=== PATIENT | male | born 1950 | race Caucasian/White ===

== ENCOUNTER 2017-11-16 14:47 | Inpatient (IN) | payer OTHER, MEDICARE ==
[~2017-11-16] VITALS: Ht 185.4 cm; Wt 125.8 kg
[2017-11-16 15:00] VITALS: BP 121/53
[2017-11-16] MEDS ORDERED: SUCCINYLCHOLINE CHLORIDE 20 MG/ML 10ML VIAL IV ONE (15:00)
[2017-11-16] MEDS ORDERED: ETOMIDATE (2MG/ML) 20ML VIAL IV ONE (15:00)
[2017-11-16] MEDS ORDERED: SODIUM CHLORIDE 0.9% 1,000 ML IV ONE (15:06)
[2017-11-16] MEDS ORDERED: MIDAZOLAM DRIP 50 mg/50mL 50 ML IV ONE (15:10)
[2017-11-16] MEDS ORDERED: LEVOFLOXACIN 500 MG/100 ML PREMIX BAG IV ONE (15:15)
[2017-11-16] MEDS: MIDAZOLAM DRIP 50 mg/50mL 50 ML IV SCH (15:15)
[2017-11-16] MEDS ORDERED: NOREPINEPHRINE 8 MG/250ML KIT 250 ML IV ONE (15:17)
[2017-11-16] MEDS: NOREPINEPHRINE 8 MG/250ML KIT 250 ML IV SCH (15:30)
[2017-11-16 16:10] LABS: Basophils # (auto) 0 uL; Eosinophils # (auto) 0 uL; Hematocrit 43.8 % (41.0-53.0); Hemoglobin 14.5 g/dL (13.5-17.5); Lymphocytes # (auto) 0.3 uL; Mean Corpuscular Hemoglobin 30.4 pg (28.0-32.0); Mean Corpuscular Hgb Conc. 33.1 g/dL (32.0-36.0); Monocytes # (auto) 0.8 uL; Monocytes % (auto) 8.5 % (0.0-12.0); Neutrophils # (auto) 8.6 uL; Neutrophils % (auto) 88.5 % (37.0-80.0); Nucleated Red Blood Cells % 0.1 %; Platelet Count (auto) 144 10^3/uL (140-450); Red Blood Cells 4.76 10^6/uL (4.5-5.90); Red Cell Distribution Width 14.4 % (11.8-14.3); White Blood Cell 9.7 10^3/uL (4.4-10.8)
[2017-11-16 16:18] LABS: Lactic Acid w/Reflex 2.1 mmol/L (0.4-2.0)
[2017-11-16 16:25] LABS: INR 0.95 (0.9-1.15); Partial Thromboplastin Time 27.8 sec (23.78-33.04); Prothrombin Time 10.2 sec (9.27-12.13)
[2017-11-16 16:39] LABS: Alanine Aminotransferase 21 U/L (16-61); Albumin 2.9 g/dL (3.4-5.0); Alkaline Phosphatase 72 U/L (45-117); Anion Gap 9 (5-15); Aspartate Aminotransferase 41 U/L (15-37); BUN/Creatinine Ratio 14.2; Bilirubin, Total 0.8 mg/dL (0.2-1.0); Blood Alcohol < 3.0 mg/dL (0-5); Blood Urea Nitrogen 71 mg/dL (7-18); Calcium 7.1 mg/dL (8.5-10.1); Carbon Dioxide 19 mmol/L (21-32); Chloride 108 mmol/L (98-107); GFR African American 15 mL/min; GFR Non-African American 12 mL/min; Glucose 138 mg/dL (74-106); Sodium 136 mmol/L (136-145); Total Protein 6.9 g/dL (6.4-8.2)
[2017-11-16 17:10] LABS: Urine Bacteria NONE SEEN /hpf (None Seen); Urine Blood 1+ /uL (Negative); Urine Mucus FEW (None Seen); Urine Specific Gravity 1.026 (1.001-1.035); Urine WBC 2 /hpf (0 - 3)
[2017-11-16] MEDS ORDERED: SODIUM BICARBONATE 8.4 % INJ 50ML VIAL IV ONE ×2 (17:15→18:15)
[2017-11-16] MEDS ORDERED: SODIUM CHLORIDE 0.9% 2,000 ML IV ONE (17:15)
[2017-11-16] MEDS ORDERED: CALCIUM GLUC 4.65meq/50ml D5AE 50 ML IV ONE (17:15)
[2017-11-16 17:29] LABS: Alcohol, Urine < 3.0 mg/dL (0-5); Amphetamine Screen, Urine NEGATIVE (NEGATIVE); Barbiturate Scree,Urine NEGATIVE (NEGATIVE); Benzodiazephine Screen, Urine NEGATIVE (NEGATIVE); Cannabinoid Screen, Urine NEGATIVE (NEGATIVE); Cocaine Screen, Urine NEGATIVE (NEGATIVE); Opiate Scree,Urine POSITIVE (NEGATIVE); Phencyclidine Screen, Urine NEGATIVE (NEGATIVE)
[2017-11-16 18:35] VITALS: BP 95/52
[2017-11-16 20:25] VITALS: BP 113/73
[2017-11-16] MEDS ORDERED: LORazepam 2MG/ML-1ML VIAL ONE (20:33)
[2017-11-16 21:35] VITALS: BP 135/76
[2017-11-16] MEDS ORDERED: LORazepam 2MG/ML-1ML VIAL IV PRN (23:00)
[2017-11-16] MEDS ORDERED: ONDANSETRON HCL 4 MG/2 ML VIAL IV PRN (23:00)
[2017-11-16 23:30] VITALS: BP 131/74
[2017-11-16] MEDS: ACETAMINOPHEN 650 mg PER 20 mL UD PO PRN (23:34)
[2017-11-16 23:43] VITALS: BP 131/74
[2017-11-17] VITALS (80 sets, daily range): BP systolic 83–143; BP diastolic 49–88
[2017-11-17] MEDS: ALBUTEROL SULF 2.5 MG/0.5ML(0.5%) NEB SOLN NEB SCH ×4 (00:40→18:33)
[2017-11-17] MEDS: IPRATROPIUM BROM 0.5 MG/2.5ML INH SOL NEB SCH ×4 (00:40→18:33)
[2017-11-17] MEDS ORDERED: DEXTROSE (50%) 50ML SYRG IV PRN (00:45)
[2017-11-17 01:05] LABS: Potassium 3.9 mmol/L (3.5-5.1)
[2017-11-17] MEDS ORDERED: SODIUM BICARBONATE 8.4 % INJ 50ML VIAL IV ONE (05:00)
[2017-11-17] MEDS: NOREPINEPHRINE 8 MG/250ML KIT 250 ML IV SCH ×2 (06:18→21:22)
[2017-11-17] MEDS: ACCU-CHEK COMFORT CURVE STRIP VI SCH ×4 (06:18→23:55)
[2017-11-17] MEDS: InsuLIN REG 1unit/0.01ml Soln (100units/ml) SC SCH ×4 (06:31→23:55)
[2017-11-17] MEDS: MIDAZOLAM DRIP 50 mg/50mL 50 ML IV SCH ×4 (07:03→20:50)
[2017-11-17] MEDS ORDERED: cefTRIAXone 1GM/10ml IVPUSH 10 ML IV SCH (09:00)
[2017-11-17 09:02] LABS: Basophils # (auto) 0 uL; Basophils % (auto) 0.1 % (0.0-2.0); Eosinophils # (auto) 0 uL; Hematocrit 44.5 % (41.0-53.0); Hemoglobin 14.4 g/dL (13.5-17.5); Lymphocytes # (auto) 0.4 uL; Lymphocytes % (auto) 7.2 % (10.0-50.0); Mean Corpuscular Hemoglobin 29.2 pg (28.0-32.0); Mean Corpuscular Hgb Conc. 32.3 g/dL (32.0-36.0); Mean Corpuscular Volume 90.3 fL (80.0-100.0); Monocytes # (auto) 0.7 uL; Monocytes % (auto) 11.3 % (0.0-12.0); Neutrophils # (auto) 4.8 uL; Neutrophils % (auto) 81.4 % (37.0-80.0); Nucleated Red Blood Cells % 0.1 %; Platelet Count (auto) 125 10^3/uL (140-450); Red Blood Cells 4.92 10^6/uL (4.5-5.90); Red Cell Distribution Width 14.3 % (11.8-14.3); White Blood Cell 5.8 10^3/uL (4.4-10.8)
[2017-11-17] MEDS: PANTOPRAZOLE 40 MG/10 ML VIAL IV SCH (09:23)
[2017-11-17 09:27] LABS: Calcium 6.9 mg/dL (8.5-10.1)
[2017-11-17] MEDS ORDERED: ENOXAPARIN SOD 30 MG/0.3 ML SYRINGE SC SCH (10:00)
[2017-11-17] MEDS ORDERED: ENOXAPARIN SOD 120 MG/0.8 ML SYRINGE SC SCH (10:00)
[2017-11-17] MEDS ORDERED: ESOM40CA39 PO (11:16)
[2017-11-17] MEDS ORDERED: CLON0.2D6 PO (11:16)
[2017-11-17] MEDS ORDERED: VITATAB PO (11:16)
[2017-11-17] MEDS ORDERED: FERR-7 PO (11:16)
[2017-11-17] MEDS ORDERED: LOSA25TA40 PO (11:16)
[2017-11-17] MEDS ORDERED: AMLO5TAB13 PO ×2 (11:16)
[2017-11-17] MEDS ORDERED: CALCCHW17 PO (11:16)
[2017-11-17] MEDS ORDERED: ERGO1CAP23 PO (11:16)
[2017-11-17] MEDS ORDERED: LOSA-46 PO (11:16)
[2017-11-17] MEDS ORDERED: CYAN50008 PO (11:16)
[2017-11-17] MEDS ORDERED: MULT-228 PO (11:16)
[2017-11-17] MEDS: ACETAMINOPHEN 650 mg PER 20 mL UD PO PRN (11:43)
[2017-11-17] MEDS ORDERED: SODIUM BICARBONATE 50ML VIAL 50 ML in SOD CHL 0.45% 1,000 ML IV SCH (12:15)
[2017-11-17] MEDS ORDERED: PIPERACILLIN-TAZOB 3.375GM 100 ML IV ONE (12:15)
[2017-11-17] MEDS ORDERED: ASPirin-EC 81 mg tab PO ONE (12:15)
[2017-11-17] MEDS: SODIUM BICARBONATE 50ML VIAL 100 ML in SOD CHL 0.45% 1,000 ML IV SCH ×2 (12:30→23:35)
[2017-11-17] MEDS ORDERED: LIDOCAINE 1% (LOCAL ANESTH.) PF 5ml SDV ID ONE (15:30)
[2017-11-17] MEDS ORDERED: PROPOFOL 100 ML IV ONE (16:42)
[2017-11-17] MEDS ORDERED: MORPHINE SULF INJ 2 MG/ML SYRINGE 1ML IV PRN (16:45)
[2017-11-17] MEDS: PROPOFOL 100 ML IV SCH ×2 (17:05→22:38)
[2017-11-17] MEDS: PIPERACILLIN-TAZOB 3.375GM 100 ML IV SCH ×2 (17:44→23:35)
[2017-11-17] MEDS ORDERED: PIPERACILLIN-TAZOB 2.25GM 50 ML IV SCH (18:00)
[2017-11-17] MEDS ORDERED: PIPERACILLIN-TAZOB 3.375GM 100 ML IV SCH (18:00)
[2017-11-17] MEDS: SODIUM CHLOR 0.9% PF (SALINE LOCK) 10ML VIAL/SYR IV SCH (22:38)
[2017-11-17] MEDS ORDERED: GABA300C10 PO (23:23)
[2017-11-18] VITALS (104 sets, daily range): BP systolic 69–148; BP diastolic 39–97
[2017-11-18] MEDS ORDERED: GABA300C10 PO (00:27)
[2017-11-18] MEDS: IPRATROPIUM BROM 0.5 MG/2.5ML INH SOL NEB SCH ×4 (00:28→18:36)
[2017-11-18] MEDS: ALBUTEROL SULF 2.5 MG/0.5ML(0.5%) NEB SOLN NEB SCH ×4 (00:28→18:35)
[2017-11-18] MEDS: MIDAZOLAM DRIP 50 mg/50mL 50 ML IV SCH ×5 (01:35→20:48)
[2017-11-18] MEDS: PROPOFOL 100 ML IV SCH ×4 (01:35→17:43)
[2017-11-18 03:58] LABS: Basophils # (auto) 0 uL; Basophils % (auto) 0.4 % (0.0-2.0); Eosinophils # (auto) 0.1 uL; Eosinophils % (auto) 1.5 % (0.0-7.0); Lymphocytes # (auto) 0.4 uL; Lymphocytes % (auto) 11.2 % (10.0-50.0); Mean Corpuscular Hemoglobin 29.3 pg (28.0-32.0); Mean Corpuscular Hgb Conc. 33.2 g/dL (32.0-36.0); Mean Corpuscular Volume 88.2 fL (80.0-100.0); Monocytes # (auto) 0.3 uL; Monocytes % (auto) 9.4 % (0.0-12.0); Neutrophils # (auto) 2.8 uL; Neutrophils % (auto) 77.5 % (37.0-80.0); Platelet Count (auto) 98 10^3/uL (140-450); Red Blood Cells 4.42 10^6/uL (4.5-5.90); White Blood Cell 3.6 10^3/uL (4.4-10.8)
[2017-11-18 04:32] LABS: Albumin 2.2 g/dL (3.4-5.0); BUN/Creatinine Ratio 29.4; Bilirubin, Direct 0.2 mg/dL (0-0.2); Bilirubin, Total 0.5 mg/dL (0.2-1.0); Calcium 6.9 mg/dL (8.5-10.1); Magnesium 2.6 mg/dL (1.6-2.6); Phosphorus 1.2 mg/dL (2.5-4.90); Potassium 3.6 mmol/L (3.5-5.1); Total Protein 5.6 g/dL (6.4-8.2); Uric Acid 3.2 mg/dL (3.5-7.2)
[2017-11-18 05:07] LABS: Urine Bacteria NONE SEEN /hpf (None Seen); Urine Blood 1+ /uL (Negative); Urine Specific Gravity 1.025 (1.001-1.035); Urine WBC 2 /hpf (0 - 3)
[2017-11-18 05:20] LABS: Protein, Urine 86.2 mg/dL (0.0-11.9)
[2017-11-18] MEDS: InsuLIN REG 1unit/0.01ml Soln (100units/ml) SC SCH ×4 (05:47→23:48)
[2017-11-18] MEDS: ACCU-CHEK COMFORT CURVE STRIP VI SCH ×4 (05:47→23:48)
[2017-11-18] MEDS: PIPERACILLIN-TAZOB 3.375GM 100 ML IV SCH ×4 (05:47→23:48)
[2017-11-18] MEDS: ASPirin-EC 81 mg tab PO SCH ×2 (10:00→10:20)
[2017-11-18] MEDS: ENOXAPARIN SOD 120 MG/0.8 ML SYRINGE SC SCH ×2 (10:15→22:22)
[2017-11-18] MEDS: PANTOPRAZOLE 40 MG/10 ML VIAL IV SCH (10:15)
[2017-11-18] MEDS: SODIUM CHLORIDE 0.9% 1,000 ML IV SCH (10:16)
[2017-11-18] MEDS: SODIUM CHLOR 0.9% PF (SALINE LOCK) 10ML VIAL/SYR IV SCH ×2 (10:16→22:22)
[2017-11-18] MEDS ORDERED: metroNIDAZOLE 500MG/100ML 100 ML IV ONE (11:30)
[2017-11-18] MEDS ORDERED: CALCIUM GLUC 4.65meq/50ml D5AE 50 ML IV ONE (12:00)
[2017-11-18] MEDS ORDERED: POTASSIUM PHOSPHATE 44 MEQ in D5W 5% 250 ML IV ONE (12:00)
[2017-11-18] MEDS: VANCOMYCIN HCL 125MG/5ML ORAL SOL PO SCH ×3 (13:57→22:21)
[2017-11-18] MEDS ORDERED: GABAPENTIN 300 MG CAP PO SCH (14:00)
[2017-11-18] MEDS: GABAPENTIN 300 MG CAP PO SCH ×2 (15:00→22:21)
[2017-11-18] MEDS ORDERED: metroNIDAZOLE 500MG/100ML 100 ML IV SCH (20:00)
[2017-11-18] MEDS: FAMOTIDINE 20 MG TAB PO SCH (22:21)
[2017-11-19] VITALS (55 sets, daily range): BP systolic 87–152; BP diastolic 49–90
[2017-11-19] MEDS: ALBUTEROL SULF 2.5 MG/0.5ML(0.5%) NEB SOLN NEB SCH ×4 (00:32→18:46)
[2017-11-19] MEDS: IPRATROPIUM BROM 0.5 MG/2.5ML INH SOL NEB SCH ×4 (00:33→18:46)
[2017-11-19] MEDS: PROPOFOL 100 ML IV SCH ×3 (00:34→20:31)
[2017-11-19 04:06] LABS: Basophils # (auto) 0 uL; Basophils % (auto) 0.7 % (0.0-2.0); Eosinophils # (auto) 0 uL; Eosinophils % (auto) 1.3 % (0.0-7.0); Hematocrit 34.7 % (41.0-53.0); Hemoglobin 11.5 g/dL (13.5-17.5); Lymphocytes # (auto) 0.6 uL; Lymphocytes % (auto) 17.5 % (10.0-50.0); Mean Corpuscular Hemoglobin 29.4 pg (28.0-32.0); Mean Corpuscular Hgb Conc. 33.1 g/dL (32.0-36.0); Mean Corpuscular Volume 88.7 fL (80.0-100.0); Monocytes # (auto) 0.3 uL; Monocytes % (auto) 8.5 % (0.0-12.0); Neutrophils # (auto) 2.5 uL; Nucleated Red Blood Cells % 0.1 %; Platelet Count (auto) 100 10^3/uL (140-450); Red Blood Cells 3.91 10^6/uL (4.5-5.90); White Blood Cell 3.5 10^3/uL (4.4-10.8)
[2017-11-19 04:30] LABS: BUN/Creatinine Ratio 18.7; Calcium 7.2 mg/dL (8.5-10.1); Magnesium 2.4 mg/dL (1.6-2.6); Phosphorus 1.7 mg/dL (2.5-4.90); Potassium 3.2 mmol/L (3.5-5.1)
[2017-11-19] MEDS: InsuLIN REG 1unit/0.01ml Soln (100units/ml) SC SCH ×3 (06:00→19:00)
[2017-11-19] MEDS: ACCU-CHEK COMFORT CURVE STRIP VI SCH ×3 (06:00→19:00)
[2017-11-19] MEDS: PIPERACILLIN-TAZOB 3.375GM 100 ML IV SCH ×3 (06:20→21:09)
[2017-11-19] MEDS: GABAPENTIN 300 MG CAP PO SCH ×3 (06:20→22:04)
[2017-11-19] MEDS: VANCOMYCIN HCL 125MG/5ML ORAL SOL PO SCH (06:21)
[2017-11-19] MEDS: SODIUM CHLORIDE 0.9% 1,000 ML IV SCH ×2 (06:36→19:05)
[2017-11-19] MEDS ORDERED: POTASSIUM PHOSPHATE 22 MEQ in SODIUM CHL 0.9% 100 ML IV ONE (06:45)
[2017-11-19] MEDS: SODIUM CHLOR 0.9% PF (SALINE LOCK) 10ML VIAL/SYR IV SCH ×2 (07:46→22:12)
[2017-11-19] MEDS: ASPirin 81 mg TAB PO SCH (10:00)
[2017-11-19] MEDS: FAMOTIDINE 20 MG TAB PO SCH ×2 (10:00→22:04)
[2017-11-19] MEDS: ENOXAPARIN SOD 120 MG/0.8 ML SYRINGE SC SCH ×2 (10:58→22:05)
[2017-11-19] MEDS ORDERED: POTASSIUM EFFERVESENT TAB 25 MEQ GT ONE (12:00)
[2017-11-19] MEDS ORDERED: FUROSEMIDE 40 MG/4 ML VIAL IV ONE (12:00)
[2017-11-19] MEDS: NOREPINEPHRINE 8 MG/250ML KIT 250 ML IV SCH (14:16)
[2017-11-20] VITALS (99 sets, daily range): BP systolic 82–152; BP diastolic 43–90
[2017-11-20] MEDS: ALBUTEROL SULF 2.5 MG/0.5ML(0.5%) NEB SOLN NEB SCH ×4 (00:04→18:59)
[2017-11-20] MEDS: IPRATROPIUM BROM 0.5 MG/2.5ML INH SOL NEB SCH ×4 (00:04→18:59)
[2017-11-20] MEDS: PROPOFOL 100 ML IV SCH ×3 (00:34→12:25)
[2017-11-20] MEDS: PIPERACILLIN-TAZOB 3.375GM 100 ML IV SCH ×5 (00:34→23:36)
[2017-11-20] MEDS: ACCU-CHEK COMFORT CURVE STRIP VI SCH ×5 (00:34→23:59)
[2017-11-20] MEDS: InsuLIN REG 1unit/0.01ml Soln (100units/ml) SC SCH ×5 (00:34→23:59)
[2017-11-20 03:32] LABS: Hematocrit 35.1 % (41.0-53.0); Hemoglobin 11.3 g/dL (13.5-17.5); Mean Corpuscular Hemoglobin 28.8 pg (28.0-32.0); Mean Corpuscular Hgb Conc. 32.3 g/dL (32.0-36.0); Mean Corpuscular Volume 89.2 fL (80.0-100.0); Platelet Count (auto) 101 10^3/uL (140-450); Red Blood Cells 3.93 10^6/uL (4.5-5.90); White Blood Cell 4.6 10^3/uL (4.4-10.8)
[2017-11-20 03:39] LABS: Basophils % (manual) 0 (0.0-2.0); Blast Cells 0; Eosinophils % (manual) 0 (0-7); Myelocytes % 0; Promyelocytes % 0; Reactive Lymphocytes 0
[2017-11-20 03:49] LABS: BUN/Creatinine Ratio 15.4
[2017-11-20 03:58] LABS: Band Neutrophils % (manual) 5; Lymphocytes % (manual) 11 (10.0-50.0); Metamyelocytes % 5; Monocytes % (manual) 7 (0-12)
[2017-11-20] MEDS: SODIUM CHLORIDE 0.9% 1,000 ML IV SCH ×2 (04:48→12:00)
[2017-11-20] MEDS: GABAPENTIN 300 MG CAP PO SCH ×3 (05:31→22:01)
[2017-11-20] MEDS: POTASSIUM CHL 20MEQ/100ML 100 ML IV SCH ×2 (05:46→07:38)
[2017-11-20 06:01] LABS: Anion Gap 7 (5-15); BUN/Creatinine Ratio 13.1; Blood Urea Nitrogen 11 mg/dL (7-18); Carbon Dioxide 26 mmol/L (21-32); Chloride 112 mmol/L (98-107); GFR African American 118 mL/min; GFR Non-African American 97 mL/min; Glucose 107 mg/dL (74-106); Sodium 145 mmol/L (136-145)
[2017-11-20 06:02] LABS: Alanine Aminotransferase 24 U/L (16-61); Alkaline Phosphatase 47 U/L (45-117); Aspartate Aminotransferase 26 U/L (15-37); Bilirubin, Total 0.4 mg/dL (0.2-1.0); Calcium 6.9 mg/dL (8.5-10.1); Total Protein 5.2 g/dL (6.4-8.2)
[2017-11-20] MEDS: SODIUM CHLOR 0.9% PF (SALINE LOCK) 10ML VIAL/SYR IV SCH ×2 (10:00→22:00)
[2017-11-20] MEDS ORDERED: IOHEXOL 350 MG/ML 100ML IJ ONE (11:07)
[2017-11-20] MEDS ORDERED: FLORASTOR (S. BOULARDII) 250 MG CAP PO ONE (11:27)
[2017-11-20] MEDS ORDERED: PANTOPRAZOLE 40 MG/10 ML VIAL IV ONE (11:45)
[2017-11-20] MEDS: ENOXAPARIN SOD 120 MG/0.8 ML SYRINGE SC SCH ×2 (12:50→22:01)
[2017-11-20] MEDS: ASPirin 81 mg TAB PO SCH (12:54)
[2017-11-20] MEDS ORDERED: Jevity 1.2 Cal/Fiber 1 Liter GT SCH (19:00)
[2017-11-21] VITALS (61 sets, daily range): BP systolic 122–161; BP diastolic 54–99
[2017-11-21] MEDS: IPRATROPIUM BROM 0.5 MG/2.5ML INH SOL NEB SCH ×4 (00:31→19:27)
[2017-11-21] MEDS: ALBUTEROL SULF 2.5 MG/0.5ML(0.5%) NEB SOLN NEB SCH ×4 (00:31→19:27)
[2017-11-21] MEDS: PROPOFOL 100 ML IV SCH (03:42)
[2017-11-21 03:59] LABS: Hematocrit 35.6 % (41.0-53.0); Hemoglobin 11.8 g/dL (13.5-17.5); Mean Corpuscular Hemoglobin 29.5 pg (28.0-32.0); Mean Corpuscular Hgb Conc. 33.2 g/dL (32.0-36.0); Platelet Count (auto) 98 10^3/uL (140-450); White Blood Cell 6.1 10^3/uL (4.4-10.8)
[2017-11-21 04:16] LABS: BUN/Creatinine Ratio 11.4; Calcium 7.5 mg/dL (8.5-10.1); Magnesium 2.4 mg/dL (1.6-2.6); Potassium 3.2 mmol/L (3.5-5.1)
[2017-11-21 04:25] LABS: Basophils % (manual) 0 (0.0-2.0); Blast Cells 0; Eosinophils % (manual) 0 (0-7); Metamyelocytes % 0; Myelocytes % 0; Promyelocytes % 0; Reactive Lymphocytes 0
[2017-11-21 05:27] LABS: Band Neutrophils % (manual) 3; Lymphocytes % (manual) 1 (10.0-50.0); Monocytes % (manual) 2 (0-12)
[2017-11-21] MEDS: InsuLIN REG 1unit/0.01ml Soln (100units/ml) SC SCH ×3 (06:00→17:50)
[2017-11-21] MEDS: PIPERACILLIN-TAZOB 3.375GM 100 ML IV SCH (06:00)
[2017-11-21] MEDS: ACCU-CHEK COMFORT CURVE STRIP VI SCH ×4 (06:00→23:53)
[2017-11-21] MEDS: GABAPENTIN 300 MG CAP PO SCH ×3 (06:00→22:02)
[2017-11-21] MEDS ORDERED: POTASSIUM CHL 20MEQ/100ML 100 ML IV ONE (07:15)
[2017-11-21] MEDS: SODIUM CHLORIDE 0.9% 1,000 ML IV SCH ×2 (07:45→11:29)
[2017-11-21] MEDS: PANTOPRAZOLE 40 MG/10 ML VIAL IV SCH (09:29)
[2017-11-21] MEDS: ASPirin 81 mg TAB PO SCH (09:29)
[2017-11-21] MEDS: SODIUM CHLOR 0.9% PF (SALINE LOCK) 10ML VIAL/SYR IV SCH ×2 (09:29→22:02)
[2017-11-21] MEDS: FLORASTOR (S. BOULARDII) 250 MG CAP PO SCH (09:29)
[2017-11-21] MEDS: ENOXAPARIN SOD 120 MG/0.8 ML SYRINGE SC SCH ×2 (09:29→22:02)
[2017-11-21] MEDS ORDERED: LEVOFLOXACIN 750MG 150 ML IV SCH (11:00)
[2017-11-21] MEDS ORDERED: MORPHINE SULF INJ 2 MG/ML SYRINGE 1ML IV PRN (11:00)
[2017-11-22] VITALS (20 sets, daily range): BP systolic 118–158; BP diastolic 54–84
[2017-11-22] MEDS: IPRATROPIUM BROM 0.5 MG/2.5ML INH SOL NEB SCH ×4 (00:06→22:45)
[2017-11-22] MEDS: ALBUTEROL SULF 2.5 MG/0.5ML(0.5%) NEB SOLN NEB SCH ×4 (00:06→22:45)
[2017-11-22 04:47] LABS: Hematocrit 34.8 % (41.0-53.0); Hemoglobin 11.6 g/dL (13.5-17.5); Mean Corpuscular Hgb Conc. 33.5 g/dL (32.0-36.0); Mean Corpuscular Volume 89.6 fL (80.0-100.0); Platelet Count (auto) 92 10^3/uL (140-450); Red Blood Cells 3.88 10^6/uL (4.5-5.90); Red Cell Distribution Width 14.1 % (11.8-14.3); White Blood Cell 5.8 10^3/uL (4.4-10.8)
[2017-11-22 05:02] LABS: Potassium 3.5 mmol/L (3.5-5.1)
[2017-11-22 05:09] LABS: BUN/Creatinine Ratio 17.9; Calcium 7.8 mg/dL (8.5-10.1)
[2017-11-22 05:11] LABS: Bilirubin, Total 0.5 mg/dL (0.2-1.0); Total Protein 5.7 g/dL (6.4-8.2)
[2017-11-22] MEDS: InsuLIN REG 1unit/0.01ml Soln (100units/ml) SC SCH ×5 (06:00→23:46)
[2017-11-22] MEDS: ACCU-CHEK COMFORT CURVE STRIP VI SCH ×4 (06:29→23:47)
[2017-11-22] MEDS: GABAPENTIN 300 MG CAP PO SCH ×3 (06:29→21:06)
[2017-11-22 07:59] LABS: Basophils % (manual) 0 (0.0-2.0); Blast Cells 0; Metamyelocytes % 0; Myelocytes % 0; Promyelocytes % 0; Reactive Lymphocytes 0
[2017-11-22 08:43] LABS: Band Neutrophils % (manual) 2
[2017-11-22 08:44] LABS: Eosinophils % (manual) 1 (0-7); Lymphocytes % (manual) 10 (10.0-50.0); Monocytes % (manual) 10 (0-12)
[2017-11-22] MEDS: FLORASTOR (S. BOULARDII) 250 MG CAP PO SCH (09:50)
[2017-11-22] MEDS: ENOXAPARIN SOD 120 MG/0.8 ML SYRINGE SC SCH ×2 (09:50→21:07)
[2017-11-22] MEDS: PANTOPRAZOLE 40 MG/10 ML VIAL IV SCH (09:50)
[2017-11-22] MEDS: ASPirin 81 mg TAB PO SCH (09:50)
[2017-11-22] MEDS: SODIUM CHLOR 0.9% PF (SALINE LOCK) 10ML VIAL/SYR IV SCH ×2 (09:50→21:07)
[2017-11-22] MEDS: SODIUM CHLORIDE 0.9% 1,000 ML IV SCH (09:51)
[2017-11-22] MEDS ORDERED: APIXABAN 5 MG TAB PO SCH ×2 (22:00)
[2017-11-23] MEDS: IPRATROPIUM BROM 0.5 MG/2.5ML INH SOL NEB SCH ×5 (00:25→23:52)
[2017-11-23] MEDS: ALBUTEROL SULF 2.5 MG/0.5ML(0.5%) NEB SOLN NEB SCH ×5 (00:25→23:52)
[2017-11-23 05:00] VITALS: BP 142/72
[2017-11-23] MEDS: GABAPENTIN 300 MG CAP PO SCH ×3 (05:02→21:39)
[2017-11-23] MEDS: InsuLIN REG 1unit/0.01ml Soln (100units/ml) SC SCH ×2 (05:02→11:46)
[2017-11-23] MEDS: ACCU-CHEK COMFORT CURVE STRIP VI SCH ×2 (05:03→11:46)
[2017-11-23] MEDS: SODIUM CHLOR 0.9% PF (SALINE LOCK) 10ML VIAL/SYR IV SCH ×2 (05:03→21:40)
[2017-11-23 06:17] LABS: Hemoglobin 10.2 g/dL (13.5-17.5); Mean Corpuscular Hgb Conc. 34.1 g/dL (32.0-36.0); Mean Corpuscular Volume 88.2 fL (80.0-100.0); Platelet Count (auto) 100 10^3/uL (140-450); Red Cell Distribution Width 13.6 % (11.8-14.3); White Blood Cell 4.8 10^3/uL (4.4-10.8)
[2017-11-23 06:26] LABS: Basophils % (manual) 0 (0.0-2.0); Blast Cells 0; Eosinophils % (manual) 0 (0-7); Myelocytes % 0; Promyelocytes % 0; Reactive Lymphocytes 0
[2017-11-23 06:33] LABS: Potassium 3.2 mmol/L (3.5-5.1)
[2017-11-23 06:45] LABS: Band Neutrophils % (manual) 3; Lymphocytes % (manual) 12 (10.0-50.0); Metamyelocytes % 4; Monocytes % (manual) 6 (0-12)
[2017-11-23 06:53] LABS: BUN/Creatinine Ratio 21.8; Bilirubin, Total 0.5 mg/dL (0.2-1.0); Calcium 7.6 mg/dL (8.5-10.1); Total Protein 5.3 g/dL (6.4-8.2)
[2017-11-23 09:01] VITALS: BP 142/78
[2017-11-23] MEDS ORDERED: POTASSIUM CHL 20 Meq TABLET PO ONE (09:15)
[2017-11-23] MEDS: PANTOPRAZOLE 40 MG TAB PO SCH (10:00)
[2017-11-23] MEDS: FLORASTOR (S. BOULARDII) 250 MG CAP PO SCH (10:00)
[2017-11-23] MEDS: ENOXAPARIN SOD 120 MG/0.8 ML SYRINGE SC SCH ×2 (10:00→21:40)
[2017-11-23] MEDS: LEVOFLOXACIN 250 MG TAB PO SCH (10:00)
[2017-11-23] MEDS: ASPirin 81 mg TAB PO SCH (10:41)
[2017-11-23 12:52] VITALS: BP 147/78
[2017-11-23 17:10] VITALS: BP 140/73
[2017-11-23] MEDS: FERROUS SULFATE 325 MG TAB PO SCH (18:43)
[2017-11-23 21:49] VITALS: BP 133/73
[2017-11-24 04:34] VITALS: BP 151/75
[2017-11-24] MEDS: SODIUM CHLOR 0.9% PF (SALINE LOCK) 10ML VIAL/SYR IV SCH (05:07)
[2017-11-24] MEDS: GABAPENTIN 300 MG CAP PO SCH (05:07)
[2017-11-24] MEDS: IPRATROPIUM BROM 0.5 MG/2.5ML INH SOL NEB SCH ×2 (05:50→11:21)
[2017-11-24] MEDS: ALBUTEROL SULF 2.5 MG/0.5ML(0.5%) NEB SOLN NEB SCH ×2 (05:50→11:21)
[2017-11-24 06:54] LABS: Hematocrit 27.7 % (41.0-53.0); Hemoglobin 9.3 g/dL (13.5-17.5); Mean Corpuscular Hemoglobin 29.6 pg (28.0-32.0); Mean Corpuscular Hgb Conc. 33.7 g/dL (32.0-36.0); Platelet Count (auto) 110 10^3/uL (140-450); Red Blood Cells 3.15 10^6/uL (4.5-5.90); Red Cell Distribution Width 13.7 % (11.8-14.3); White Blood Cell 5.7 10^3/uL (4.4-10.8)
[2017-11-24 07:05] LABS: Basophils % (manual) 0 (0.0-2.0); Blast Cells 0; Metamyelocytes % 0; Myelocytes % 0; Promyelocytes % 0; Reactive Lymphocytes 0
[2017-11-24 07:23] LABS: Albumin 2.1 g/dL (3.4-5.0); BUN/Creatinine Ratio 22.6; Bilirubin, Total 0.7 mg/dL (0.2-1.0); Calcium 7.4 mg/dL (8.5-10.1); Potassium 3.1 mmol/L (3.5-5.1); Total Protein 5.5 g/dL (6.4-8.2)
[2017-11-24 08:06] LABS: Band Neutrophils % (manual) 6; Eosinophils % (manual) 2 (0-7); Lymphocytes % (manual) 5 (10.0-50.0); Monocytes % (manual) 6 (0-12)
[2017-11-24 08:54] VITALS: BP 151/83
[2017-11-24] MEDS: FERROUS SULFATE 325 MG TAB PO SCH (09:20)
[2017-11-24] MEDS ORDERED: POTASSIUM CHL 20 Meq TABLET PO ONE (09:45)
[2017-11-24] MEDS: FLORASTOR (S. BOULARDII) 250 MG CAP PO SCH (10:21)
[2017-11-24] MEDS ORDERED: LEVO750T2 PO (10:28)
[2017-11-24] MEDS: LEVOFLOXACIN 250 MG TAB PO SCH (10:28)
[2017-11-24] MEDS: PANTOPRAZOLE 40 MG TAB PO SCH (10:28)
[2017-11-24] MEDS: ENOXAPARIN SOD 120 MG/0.8 ML SYRINGE SC SCH (10:28)
[2017-11-24] MEDS: ASPirin 81 mg TAB PO SCH (10:28)
[2017-11-24] MEDS ORDERED: SACC250C PO (10:28)
== END 2017-11-24 12:00 | disposition home or self-care (01) | DRG 870 ==
LOC: EDBD 14:47 → ER 14:47 → EDUNIT# 14:47 → TELE 14:48 → ICU WEST 11-17 04:13 → TELE-WESTW 11-22 17:05
PROVIDERS: ADMIT Nurse Practitioner Family; ATTEND Internal Medicine
PROC: 5A1955Z Respiratory Ventilation, Greater than 96 Consecutive Hours (ICD-10-PCS; 2017-11-16)
PROC: 0BH17EZ Insertion of Endotracheal Airway into Trachea, Via Natural or Artificial Opening (ICD-10-PCS; 2017-11-16)
PROC: 02HV33Z Insertion of Infusion Device into Superior Vena Cava, Percutaneous Approach (ICD-10-PCS; principal; 2017-11-17)
PROC: 02HV33Z Insertion of Infusion Device into Superior Vena Cava, Percutaneous Approach (ICD-10-PCS; 2017-11-20)
PROC: 5A1935Z Respiratory Ventilation, Less than 24 Consecutive Hours (ICD-10-PCS; 2017-11-24)
PROC: 0BH17EZ Insertion of Endotracheal Airway into Trachea, Via Natural or Artificial Opening (ICD-10-PCS; 2017-11-24)
DX: A41.9 Sepsis, unspecified organism (principal); R65.21 Severe sepsis with septic shock; J96.01 Acute respiratory failure with hypoxia; N17.0 Acute kidney failure with tubular necrosis; G93.41 Metabolic encephalopathy; I26.99 Other pulmonary embolism without acute cor pulmonale; I46.9 Cardiac arrest, cause unspecified; J69.0 Pneumonitis due to inhalation of food and vomit; I21.A1 Myocardial infarction type 2; I50.33 Acute on chronic diastolic (congestive) heart failure; E87.4 Mixed disorder of acid-base balance; I13.0 Hypertensive heart and chronic kidney disease with heart failure and stage 1 through stage 4 chronic kidney disease, or unspecified chronic kidney disease; I08.0 Rheumatic disorders of both mitral and aortic valves; I70.0 Atherosclerosis of aorta; D63.8 Anemia in other chronic diseases classified elsewhere; E11.22 Type 2 diabetes mellitus with diabetic chronic kidney disease; E11.65 Type 2 diabetes mellitus with hyperglycemia; E87.5 Hyperkalemia; G47.30 Sleep apnea, unspecified; E11.42 Type 2 diabetes mellitus with diabetic polyneuropathy; E66.9 Obesity, unspecified; B19.20 Unspecified viral hepatitis C without hepatic coma; Z53.29 Procedure and treatment not carried out because of patient's decision for other reasons; R19.7 Diarrhea, unspecified; J98.4 Other disorders of lung; K21.9 Gastro-esophageal reflux disease without esophagitis; N18.9 Chronic kidney disease, unspecified; Z68.36 Body mass index [BMI] 36.0-36.9, adult; Z82.3 Family history of stroke; Z82.49 Family history of ischemic heart disease and other diseases of the circulatory system; Z83.3 Family history of diabetes mellitus; Z98.84 Bariatric surgery status
CPT/HCPCS: 31500; 36415; 36569; 36600; 51702; 70450; 71045; 71275; 80048; 80053; 80061; 80076; 80307; 80320; 81001; 82140; 82550; 82570; 82805; 82962; 83036; 83605; 83735; 83880; 84100; 84132; 84156; 84300; 84484; 84550; 85007; 85025; 85027; 85379; 85610; 85730; 87040; 87070; 87077; 87081; 87086; 87186; 87205; 87493; 93005; 93306; 93970; 93971; 94002; 94003; 94640; 96361; 96374; 96375; 97110; 97163; 99291; A6257; C9113; J0330; J0610; J0696; J1815; J1956; J2250; J2543; J2704; J3480; J3490; J7060